=== PATIENT | male | born 1955 | race Caucasian/White ===

== ENCOUNTER 2017-07-11 14:59 | Emergency (ER) | payer OTHER, MEDICARE ==
[~2017-07-11] VITALS: Ht 182.9 cm; Wt 90.0 kg
[2017-07-11 15:04] VITALS: BP 146/96; PULSE 102; RESP 15; TEMP 98.3; O2SAT 98
[2017-07-11 15:21] VITALS: BP 155/89; PULSE 98; RESP 22; O2SAT 95
[2017-07-11] MEDS ORDERED: SODIUM CHLORIDE 0.9% FLUSH 10 ML FLUSH IVF PRN (15:45)
--- NOTE | 2017-07-11 15:47 | PD ---
HPI Chief Complaint: Abnormal Results Time Seen by Provider: 15:29 Travel History International Travel<30 days: No Contact w/Intl Traveler<30days: No Traveled to known affect area: No History of Present Illness HPI 62 year old male presents to the emergency department sent by the [facility] for subdural hematoma. Patient states that on June 05, 2017, he was diagnosed with subdural hematoma by a hospital in [place], [place]. He denies trauma at that time, but states it was a spontaneous subdural hematoma. He states that he lives in [facility], but does have a house in [place], [place] and spends between 2 and 6 weeks there. He states that he was sent to another hospital, was monitored overnight and was seen by a neurosurgeon and discharged. He followed up in one week while in [place], [place] and was told his subdural hematoma was getting smaller. He came back here and was supposed to follow-up with a neurosurgeon, but did not follow up right away. He fell approximately 3-4 days ago. He states it was a slip and fall. He does not remember hitting his head or if he lost consciousness. However, [facility]. He was called this morning and told that his subdural hematoma had increased and he needed to come to the ER. However, he has no paperwork with him at this time. He has history of right arm injury with nerve injury and has and a sling. He also reports some left upper back pain since that slip and fall. Patient denies any chest pain or shortness breath. No abdominal pain. No nausea, vomiting, diarrhea. He states he is not on anticoagulants. PFSH Past Medical History Arthritis: Yes High Cholesterol: Yes Diminished Hearing: No GERD: Yes Headaches: Yes Hypertension: Yes Immunizations Current: Yes Social History Alcohol Use: Yes (daily) Tobacco Use: No Substance Use: No Allergies-Medications (Allergen,Severity, Reaction): Coded Allergies: No Known Allergies (Unverified , 10/07/15) Reported Meds & Prescriptions Reported Meds & Active Scripts Active Reported Zantac (Ranitidine HCl) Unknown Strength Tab 1 Tab PO DAILY PRN Doxepin (Doxepin HCl) 10 Mg Cap 10 Mg PO HS Percocet (Oxycodone-Acetaminophen) 10-325 mg Tab 1 Tab PO Q6H PRN Omeprazole 20 Mg Tab 20 Mg PO DAILY Review of Systems Except as stated in HPI: all other systems reviewed are Neg Physical Exam Narrative GENERAL: Well-nourished, well-developed male patient, afebrile. SKIN: Focused skin assessment warm/dry. HEAD: Normocephalic. Atraumatic. EYES: No scleral icterus. No injection or drainage. PERRLA. NECK: Supple, trachea midline. No JVD or lymphadenopathy. CARDIOVASCULAR: Regular rate and rhythm without murmurs, gallops, or rubs. RESPIRATORY: Breath sounds equal bilaterally. No accessory muscle use. Lungs sounds are clear to auscultation. GASTROINTESTINAL: Abdomen soft, non-tender, nondistended. MUSCULOSKELETAL: No cyanosis, or edema. Bilateral lower extremity and left upper shoulder strength 5/5 and are neurovascularly intact. BACK: Nontender without obvious deformity. No CVA tenderness. Data Data Last Documented VS Vital Signs Date Time Temp Pulse Resp B/P (MAP) Pulse Ox O2 Delivery O2 Flow Rate FiO2 07/11/17 15:52 (111) 97 Room Air 07/11/17 15:21 98 22 07/11/17 15:04 98.3 Orders Orders Complete Blood Count With Diff (07/11/17 15:45) Comprehensive Metabolic Panel (07/11/17 15:45) Prothrombin Time / Inr (Pt) (07/11/17 15:45) Act Partial Throm Time (Ptt) (07/11/17 15:45) Ct Brain W/O Iv Contrast(Rout) (07/11/17 15:45) Ecg Monitoring (07/11/17 15:45) Iv Access Insert/Monitor (07/11/17 15:45) Oximetry (07/11/17 15:45) Sodium Chloride 0.9% Flush (Ns Flush) (07/11/17 15:45) Type And Screen (07/11/17 15:45) Electrocardiogram (07/11/17 ) Chest, Single Ap (07/11/17 ) Cyclobenzaprine (Flexeril) (07/11/17 17:45) Oxycodone-Acetamin 10-325 Mg (Percocet 1 (07/11/17 17:45) Labs Laboratory Tests Test 07/11/17 15:51 White Blood Count 7.5 TH/MM3 Red Blood Count 4.48 MIL/MM3 Hemoglobin 14.2 GM/DL Hematocrit 41.5 % Mean Corpuscular Volume 92.6 FL Mean Corpuscular Hemoglobin 31.7 PG Mean Corpuscular Hemoglobin Concent 34.3 % Red Cell Distribution Width 14.7 % Platelet Count 225 TH/MM3 Mean Platelet Volume 9.1 FL Neutrophils (%) (Auto) 73.9 % Lymphocytes (%) (Auto) 14.7 % Monocytes (%) (Auto) 10.0 % Eosinophils (%) (Auto) 0.9 % Basophils (%) (Auto) 0.5 % Neutrophils # (Auto) 5.6 TH/MM3 Lymphocytes # (Auto) 1.1 TH/MM3 Monocytes # (Auto) 0.8 TH/MM3 Eosinophils # (Auto) 0.1 TH/MM3 Basophils # (Auto) 0.0 TH/MM3 CBC Comment DIFF FINAL Differential Comment Prothrombin Time 11.4 SEC Prothromb Time International Ratio 1.0 RATIO Activated Partial Thromboplast Time 26.7 SEC Blood Urea Nitrogen 9 MG/DL Creatinine 0.79 MG/DL Random Glucose 88 MG/DL Total Protein 7.6 GM/DL Albumin 3.5 GM/DL Calcium Level 8.9 MG/DL Alkaline Phosphatase 75 U/L Aspartate Amino Transf (AST/SGOT) 15 U/L Alanine Aminotransferase (ALT/SGPT) 21 U/L Total Bilirubin 0.6 MG/DL Sodium Level 138 MEQ/L Potassium Level 3.7 MEQ/L Chloride Level 104 MEQ/L Carbon Dioxide Level 26.1 MEQ/L Anion Gap 8 MEQ/L Estimat Glomerular Filtration Rate 99 ML/MIN [facility] Medical Decision Making Medical Screen Exam Complete: Yes Emergency Medical Condition: Yes Medical Record Reviewed: Yes Interpretation(s) Last Impressions Head CT 07/11/17 1545 Signed Impressions: Service Date/Time: June 16:26 - CONCLUSION: 1. Either acute on chronic or subacute subdural hematoma on the right without significant mass effect. Benny Patel Jr., MD Chest X-Ray 07/11/17 0000 Signed Impressions: Service Date/Time: June 16:00 - CONCLUSION: No acute cardiopulmonary disease Benny Patel Jr., MD Differential Diagnosis Subdural hematoma versus skull fracture versus fall Narrative Course 62 year old male presents to the emergency department sent by the [facility] for worsening subdural hematoma. EKG, CBC, CMP, PTT, PT/INR, type and screen are ordered and pending. CT of the brain and chest x-ray are ordered and pending. EKG shows sinus rhythm, heart rate 87, no acute ST changes. CBC shows no acute abnormality. CMP shows no acute abnormality. Coags are unremarkable. CT of the brain shows a mixed density subdural hematoma seen on the right, this has a mixture of acute blood and chronic fluid, maximum thickness is 6 mm and overlies the frontal, temporal, and parietal lobes. No significant mass effect. No midline shift. Ventricles are normal in size. Brain parenchyma shows normal attenuation. Calvarium is intact. Chest x-ray shows no acute cardiopulmonary disease. I was able to obtain records from [facility] in [place] where he was transferred to. I have a copy of the CT report from June 06, 2017. It shows a mixed hypodense and hyperdense subdural fluid collection within fluid/ fluid level hematocrit was again notified overlying the right frontal. No convexity is again measures up to 11 mm in thickness but demonstrates only limited localized mass effect unchanged in the interval. The ventricles, cortical sulci, and basilar cisterns remain borderline diffusely prominent but are otherwise unremarkable and unchanged interval. No midline shift. Likewise no additional regions of abnormal attenuation, mass effect, hemorrhage or extra- axial fluid collections are otherwise identified. I talked to Dr. Sims, neurosurgeon senior clinical consultant. He reviewed images from today. I discussed previous CT report with him as well. He states it does sound as if the subdural hematoma is improving. Patient remains asymptomatic except complaining of a headache. Dr. Sims recommends that the patient take it easy, don't drink, does smoke, follow-up with neurosurgeon. I discussed with the patient who verbalizes agreement and would like to go home. Patient is requesting pain medication also complaining of muscle spasm. Patient is given his prescribed Percocet 10/325 mg as well for Flexeril for the muscle spasm. He'll be discharged prescription for Flexeril. [facility] is [facility] with [facility] to follow the subdural hematoma. He is to return here for any acute worsening of symptoms. He verbalizes agreement and under standing. Diagnosis Primary Impression: Subacute subdural hematoma Referrals: Brandon Sims MD Primary Care Physician call for appointment Patient Instructions: General Instructions, Subdural Hematoma (ED) Additional Instructions: Take Flexeril as directed as needed for muscle spasms. [facility] and [facility]. Return to the emergency department for any acute, worsening of symptoms. Med/Other Pt SpecificInfo: Prescription(s) given Scripts Cyclobenzaprine (Flexeril) 10 Mg Tab 10 MG PO TID Y for MUSCLE SPASM, #21 TAB 0 Refills Prov: Karmen Quezada 07/11/17 Disposition: 01 DISCHARGE HOME Condition: Stable Karmen Quezada Jul 11, 2017 15:47
[2017-07-11 15:52] VITALS: O2SAT 97
[2017-07-11 16:10] LABS: AUTOMATED NEUTROPHIL # 5.6 TH/MM3 (1.8-7.7); BASOPHIL % 0.5 % (0.0-2.0); EOSINOPHIL # 0.1 TH/MM3 (0-0.4); EOSINOPHIL % 0.9 % (0.0-4.0); HEMATOCRIT 41.5 % (39.0-51.0); HEMO FLAGS DIFF FINAL; LYMPH % 14.7 % (9.0-44.0); LYMPHOCYTE # 1.1 TH/MM3 (1.0-4.8); MEAN CELL VOLUME 92.6 FL (80.0-100.0); MEAN CORPUSCULAR HEMOGLOBIN 31.7 PG (27.0-34.0); MEAN CORPUSCULAR HGB CONC 34.3 % (32.0-36.0); NEUT % 73.9 % (16.0-70.0); PLATELET COUNT 225 TH/MM3 (150-450); RED BLOOD COUNT 4.48 MIL/MM3 (4.50-5.90); RED CELL DISTRIBUTION WIDTH 14.7 % (11.6-17.2); WHITE BLOOD COUNT 7.5 TH/MM3 (4.0-11.0)
[2017-07-11 16:18] LABS: APTT (PATIENT) 26.7 SEC (24.3-30.1); PROTHROMBIN TIME - PATIENT 11.4 SEC (9.8-11.6)
[2017-07-11 16:33] LABS: ALT (GPT) 21 U/L (12-78); ANION GAP 8 MEQ/L (5-15); AST (GOT) 15 U/L (15-37); BICARBONATE 26.1 MEQ/L (21.0-32.0); BLOOD UREA NITROGEN 9 MG/DL (7-18); CHLORIDE 104 MEQ/L (98-107); GLOMERULAR FILTRATION RATE 99 ML/MIN (>89); POTASSIUM 3.7 MEQ/L (3.5-5.1); SODIUM (NA) 138 MEQ/L (136-145)
[2017-07-11 16:35] LABS: ALKALINE PHOSPHATASE 75 U/L (45-117); TOTAL BILIRUBIN ADULT 0.6 MG/DL (0.2-1.0)
--- NOTE | 2017-07-11 16:48 | RADRPT ---
EXAM DATE/TIME: 07/11/2017 16:00 [facility] COMPARISON: RIBS RIGHT(W PA CXR MIN 3VWS), July 27, 2013, 12:41. INDICATIONS : Left posterior rib pain, fell MEDICAL HISTORY : Hypertension. Known diverticulosis and right renal calculus SURGICAL HISTORY : None. ENCOUNTER: Initial ACUITY: 4 - 6 days PAIN SCORE: 10/10 LOCATION: Left chest FINDINGS: A single portable frontal view the chest shows a linear area of parenchymal density within the latera l right lung base. This is an area of previous rib fracture and is felt to relate to scarring. Lungs are clear otherwise. No infiltrates or effusions. No pneumothorax. Heart is at the upper limits of no rmal in terms of size. Bony structures are unremarkable CONCLUSION: No acute cardiopulmonary disease Benny Patel Jr., MD on July 11, 2017 at 16:44 Board Certified Radiologist. This report was verified electronically.
[2017-07-11] MEDS ORDERED: DOXE10CA PO (16:54)
[2017-07-11] MEDS ORDERED: ZANT150T2 PO (16:54)
[2017-07-11] MEDS ORDERED: PERC10TA27 PO (16:54)
[2017-07-11] MEDS ORDERED: OMEP20TA PO (16:54)
--- NOTE | 2017-07-11 17:14 | RADRPT ---
EXAM DATE/TIME: 07/11/2017 16:26 [facility] COMPARISON: No previous studies available for comparison. INDICATIONS : Evaluate subdural hematoma. RADIATION DOSE: 56.35 CTDIvol (mGy) MEDICAL HISTORY : Hypertension. SURGICAL HISTORY : None. ENCOUNTER: Initial ACUITY: 1 day PAIN SCALE: 0/10 LOCATION: cranial TECHNIQUE: Multiple contiguous axial images were obtained of the head. Using automated exposure control and adj ustment of the mA and/or kV according to patient size, radiation dose was kept as low as reasonably a chievable to obtain optimal diagnostic quality images. DICOM format image data is available electro nically for review and comparison. FINDINGS: A mixed density subdural hematoma is seen on the right. This has a mixture of acute blood and chronic fluid. The maximum thickness is 6 mm. And overlies the frontal, temporal, and parietal lobes. No sig nificant mass effect. No midline shift. Ventricles are normal in size. Brain parenchyma shows normal attenuation. Calvarium is intact. CONCLUSION: 1. Either acute on chronic or subacute subdural hematoma on the right without significant mass effect . Benny Patel Jr., MD on July 11, 2017 at 17:10 Board Certified Radiologist. This report was verified electronically.
[2017-07-11] MEDS ORDERED: CYCL1TAB29 PO (17:44)
[2017-07-11] MEDS ORDERED: CYCLOBENZAPRINE HCL 10 MG TAB PO ONE (17:45)
[2017-07-11] MEDS ORDERED: oxyCODONE/ACETAMINOPHEN 10 MG/325 MG TAB PO ONE (17:45)
--- NOTE | 2017-07-12 22:02 | EKG ---
Date Performed: 07/11/2017 Time Performed: 16:17:44 PTAGE: 62 years EKG: Sinus rhythm POSSIBLE RIGHT VENTRICULAR CONDUCTION DELAY BORDERLINE ECG NO PREVIOUS TRACING DOCTOR: Dimitrios Calix Interpretating Date/Time 07/12/2017 21:35:55
== END 2017-07-11 18:19 | disposition home or self-care (01) ==
LOC: NEPE 14:59
DX: I62.02 Nontraumatic subacute subdural hemorrhage (principal); S44.91XD Injury of unspecified nerve at shoulder and upper arm level, right arm, subsequent encounter; M54.6 Pain in thoracic spine; R51 Headache; M62.838 Other muscle spasm; R94.31 Abnormal electrocardiogram [ECG] [EKG]; I10 Essential (primary) hypertension; E78.00 Pure hypercholesterolemia, unspecified; W01.0XXD Fall on same level from slipping, tripping and stumbling without subsequent striking against object, subsequent encounter; Z87.39 Personal history of other diseases of the musculoskeletal system and connective tissue; Z87.19 Personal history of other diseases of the digestive system
CPT/HCPCS: 70450; 71010; 80053; 85025; 85610; 85730; 86850; 86900; 86901; 93005; 99285